=== PATIENT | male | born 1980 | race American Indian/Alaskan Native ===

== ENCOUNTER 2018-03-15 10:20 | Emergency (ER) | payer SELFPAY ==
[2018-03-15 10:53] VITALS: BP 104/66
--- NOTE | 2018-03-15 14:43 | Emergency Department Report ---
Chief Complaint: Headache Stated Complaint: POSS ARM INFECTION Time Seen by Provider: 03/15/18 14:23 - HPI History of Present Illness: Patient is a 37-year-old male has injury to the right hand 3 days ago. Did see this patient in the hallway he was placed in a room however he's left without telling anyone before he could be examined. - ROS Review of Systems: Not done - Exam Vital Signs: Vital Signs 03/15/18 10:51 Temperature 99.5 F Pulse Rate 85 Respiratory 18 Rate Blood Pressure 104/66 O2 Sat by Pulse 100 Oximetry Physical Exam: Patient left before being fully examined by me MSE screening note: Focused history and physical exam performed. Due to findings the following was ordered: ED Disposition for MSE Disposition: [id number] LEFT AGAINST MED ADVICE Is pt being admited?: No Does the pt Need Aspirin: No Condition: Stable Referrals: PRIMARY CARE, [Primary Care Provider] - 3-5 Days
== END 2018-03-15 15:32 | disposition left against medical advice (07) ==
LOC: ED 10:20
DX: R51 Headache (principal); Z53.21 Procedure and treatment not carried out due to patient leaving prior to being seen by health care provider